=== PATIENT | female | born 1975 | race African-American/Black ===

== ENCOUNTER 2017-01-29 00:30 | Emergency (ER) | payer SELFPAY ==
[~2017-01-29] VITALS: Ht 162.6 cm; Wt 97.5 kg
[~2017-01-29 00:30] MED LIST: AMOXICILLIN500 MG ORAL; BACTRIM DS TAB1 EAC1 ORAL; IBUPROFEN600 MG ORAL; KEFLEX500 MG ORAL
[2017-01-29] MEDS ORDERED: NKM (00:38)
[2017-01-29 01:28] VITALS: BP 134/82
[2017-01-29 01:48] VITALS: BP 134/82
--- NOTE | 2017-01-29 02:00 | Emergency Room Report ---
History of Present Illness General Chief Complaint: Edema Source: Patient Present Illness HPI 41YOF with 2-3 days bilateral foot pain/swelling. Walks a lot. Denies fever/ chills, redness, warmth to feet. Denies insect bite, puncture would. No history of HTN, CHF. *HPI limited by patient more interested in sleeping, asking for a sandwich than discussing her medical problem/visit. Allergies: Coded Allergies: NO KNOWN ALLERGIES (Unverified Allergy, Unknown, 01/29/17) Patient History Past Medical History: none Past Surgical History: none Pertinent Family History: none Last Menstrual Period: now Now: No Immunizations: UTD Reviewed Nursing Documentation: PMH: Agreed, PSxH: Agreed Nursing Documentation-PMH Past Medical History: No Stated History Review of Systems All Other Systems: negative except mentioned in HPI Physical Exam Vital Signs Date Time Temp Pulse Resp B/P Pulse Ox O2 Delivery O2 Flow Rate FiO2 01/29/17 00:33 97.7 83 16 143/87 98 Room Air Sp02 EP Interpretation: reviewed, normal General Appearance: normal inspection, well appearing, no apparent distress, alert Head: normocephalic, atraumatic ENT: normal ENT inspection Neck: normal inspection, full range of motion, supple, no bony tend Respiratory: normal inspection, lungs clear, normal breath sounds, no respiratory distress, no retraction, no wheezing Cardiovascular #1: regular rate, rhythm, no edema Gastrointestinal: normal inspection, normal bowel sounds, non tender, soft, no guarding, no hernia Genitourinary: no CVA tenderness Musculoskeletal: normal inspection, back normal, normal range of motion, Wendy' s Sign negative, other - +1 non-pitting edema bilateral feet. No cellulitis. No rash. No puncture wounds Neurologic: normal inspection, alert, oriented x3, responsive, sales advisory manager III-XII nml as tested, motor strength/tone normal, speech normal Psychiatric: normal inspection, judgement/insight normal, mood/affect normal Skin: normal inspection, normal color, no rash Medical Decision Making Diagnostic Impression: Primary Impression: Edema Qualified Codes: R60.0 - Localized edema ER Course Not particularly pitting. No history of CKD or CHF Doubt fluid overload VSS. Afebrile No cellulitis Analgesia provided DANIEL bandages applied DC home Last Vital Signs Date Time Temp Pulse Resp B/P Pulse Ox O2 Delivery O2 Flow Rate FiO2 01/29/17 01:48 97.7 86 18 134/82 98 Room Air Status: improved Disposition: HOME, SELF-CARE Condition: Improved Referrals: NOT CHOSEN IPA/MD,REFERRING (PCP) Patient Instructions: Edema Additional Instructions: - Keep daniel bandages on feet/ankles to reduce swelling - Sleep with feet elevated KADEEM NATION M.D. Jan 29, 2017 02:00
== END 2017-01-29 01:50 | disposition home or self-care (01) ==
LOC: EMR 01:36
DX: R60.0 Localized edema (principal); M79.672 Pain in left foot; M79.671 Pain in right foot
CPT/HCPCS: 29540; 99283

== ENCOUNTER 2018-01-29 13:43 | Emergency (ER) | payer MEDICAID ==
[~2018-01-29] VITALS: Ht 157.5 cm; Wt 72.6 kg
[~2018-01-29 13:43] MED LIST changes: +NKM
[2018-01-29 14:24] VITALS: BP 151/98
[2018-01-29] MEDS ORDERED: Dicyclomine HCl 10mg/5ml oral soln ORAL ONE (15:15)
--- NOTE | 2018-01-29 15:31 | Emergency Room Report ---
History of Present Illness General Chief Complaint: Flu Like Symptoms Source: Patient Present Illness HPI 42 YO Female presents to the ED c/o cough, Rhinorrhea, body aches, severe nasal congestion x 3 days. pt. reports loose stool that is greenish in color x 2 days. estimates 3 BM's per day. denies recent travel, ill contacts or antibiotic use. pt. denies abdominal pain or tenderness. Pt. reports abdominal cramping just prior to BM's that are resolved after BM. Pt. reports nausea and denies vomiting. denies bloody or dark black stools. pt. denies fevers. She reports some chills Denies CP, Palpitations, LOC, AMS, dizziness, Changes in Vision, Sensation, paresthesias, Rash or a sudden severe headache. She denies hx of Asthma or COPD, she reports that she is a current smoker. Denies dysuria, hematuria, urinary frequency or urgency. denies . Allergies: Coded Allergies: NO KNOWN ALLERGIES (Unverified Allergy, Unknown, 01/29/17) Patient History Past Medical History: see triage record Past Surgical History: none Pertinent Family History: none Last Menstrual Period: 12/15/17 Now: No : 4 Para: 4 Reviewed Nursing Documentation: PMH: Agreed; PSxH: Agreed Nursing Documentation-PMH Past Medical History: No Stated History Review of Systems All Other Systems: negative except mentioned in HPI Physical Exam Vital Signs Date Time Temp Pulse Resp B/P (MAP) Pulse Ox O2 Delivery O2 Flow Rate FiO2 01/29/18 13:58 98.8 76 22 151/98 96 Room Air 98.8 Sp02 EP Interpretation: reviewed, normal General Appearance: no apparent distress - pt. appears tired, sleeps , alert, GCS 15, non-toxic Head: normocephalic, atraumatic Eyes: bilateral eye normal inspection, bilateral eye PERRL ENT: hearing grossly normal, normal voice, uvula midline, moist mucus membranes , nasal congestion - clear rhinorrhea Neck: full range of motion, no meningismus, no bony tend Respiratory: chest non-tender, lungs clear, normal breath sounds, no rhonchi, no wheezing, speaking full sentences Cardiovascular #1: regular rate, rhythm Gastrointestinal: normal bowel sounds, non tender, soft, non-distended, no guarding, no rebound Rectal: deferred Genitourinary: normal inspection, no CVA tenderness Musculoskeletal: back normal, gait/station normal, normal range of motion, non- tender Neurologic: alert, oriented x3, responsive, motor strength/tone normal, sensory intact, normal gait, speech normal, grossly normal Psychiatric: judgement/insight normal Skin: normal color, no rash, warm/dry, well hydrated Lymphatic: no adenopathy Medical Decision Making PA Attestation Dr. Higginbotham is my supervising Physician whom patient management has been discussed with. Diagnostic Impression: Primary Impression: Bronchitis Additional Impressions: Upper respiratory infection Qualified Codes: J06.9 - Acute upper respiratory infection, unspecified Diarrhea Qualified Codes: R19.7 - Diarrhea, unspecified ER Course 42 YO Female presents to the ED c/o cough, Rhinorrhea, body aches, severe nasal congestion x 3 days. pt. reports loose stool that is greenish in color x 2 days. estimates 3 BM's per day. denies recent travel, ill contacts or antibiotic use. pt. denies abdominal pain or tenderness. Pt. reports abdominal cramping just prior to BM's that are resolved after BM. Pt. reports nausea and denies vomiting. denies bloody or dark black stools. pt. denies fevers. She reports some chills Denies CP, Palpitations, LOC, AMS, dizziness, Changes in Vision, Sensation, paresthesias, Rash or a sudden severe headache. She denies hx of Asthma or COPD, she reports that she is a current smoker.. Ddx considered but are not limited to URI, pneumonia, PE, strep pharyngitis, meningitis. Vital signs: Pt. is afebrile, the remaining VS are WNL H&PE are most consistent with URI- no meningeal signs, oropharynx is not involved, no evidence of bacterial infection at this time. - No evidence to suggest acute abdomen on physical exam. She is nontoxic in appearance and in no acute distress during ED visit. Patient was resting comfortably, taking a nap on gurney prior to evaluation. NO evidence to suggest moderate-significant dehydration. ORDERS: none required at this time, the diagnosis is clinical ED INTERVENTIONS: None required at this time. -I do not identify an emergent condition at this time given this patient's physical exam and ER course. Patient is able to tolerate oral fluids, discussed the patient that she will be treated conservatively for her symptoms and that she is stable for close outpatient follow-up. I Gave this patient strict ED return precautions for worsening or new symptoms. DISCHARGE: At this time pt. is stable for d/c to home. Will provide printed patient care instructions, and any necessary prescriptions. Care plan and follow up instructions have been discussed with the patient prior to discharge. Last Vital Signs Date Time Temp Pulse Resp B/P (MAP) Pulse Ox O2 Delivery O2 Flow Rate FiO2 01/29/18 14:24 76 22 Room Air 01/29/18 14:24 98.8 151/98 96 98.8 Disposition: HOME, SELF-CARE Condition: Stable Scripts Loratadine/Pseudoephedrine (CLARITIN-D 12 HOUR TABLET) 1 Each Tab.er.12h 1 TAB ORAL EVERY 12 HOURS, #20 TAB Prov: Nessa Abernathy 01/29/18 Dicyclomine Hcl* (DICYCLOMINE HCL*) 10 Mg Capsule 10 MG PO QID, #15 CAP Prov: Nessa Abernathy 01/29/18 Codeine/Promethazine Hcl* (PROMETHAZINE-CODEINE SYRUP*) 118 Ml Syrup 5 ML ORAL Q6H PRN for For Cough, #120 ML 0 Refills Prov: Nessa Abernathy 01/29/18 Referrals: NOT CHOSEN IPA/MD,REFERRING (PCP) Patient Instructions: Diarrhea, Adult, [id number], Upper Respiratory Infection, Adult, [id number] Additional Instructions: Take medications as directed. Follow up with a Primary Care Provider in 3-5 days, even if your symptoms have resolved. --Please review list of primary care clinics, if you do not already have a primary care provider Return sooner to ED if new symptoms occur, or current symptoms become worse. Do not drink alcohol, drive, or operate heavy machinery while taking [ ] as this may cause drowsiness. - Please note that this Emergency Department Report was dictated using happnprint shop assistant technology software, occasionally this can lead to erroneous entry secondary to interpretation by the dictation equipment. Nessa Abernathy Jan 29, 2018 15:31
[2018-01-29] MEDS ORDERED: PROMETHAZINE-C118 M1 ORAL (15:32)
[2018-01-29] MEDS ORDERED: DICYCLOMINE HCL10 MG PO (15:32)
[2018-01-29] MEDS ORDERED: CLARITIN-D 121 EAC1 ORAL (15:32)
[2018-01-29 16:19] VITALS: BP 146/93
== END 2018-01-29 16:21 | disposition home or self-care (01) ==
LOC: EMR 14:21
DX: J20.9 Acute bronchitis, unspecified (principal); J06.9 Acute upper respiratory infection, unspecified; R19.7 Diarrhea, unspecified
CPT/HCPCS: 99284

== ENCOUNTER 2018-07-06 03:00 | Emergency (ER) | payer MEDICAID ==
[~2018-07-06] VITALS: Ht 157.5 cm; Wt 68.0 kg
[~2018-07-06 03:00] MED LIST changes: +CLARITIN-D 121 EAC1 ORAL; +DICYCLOMINE HCL10 MG PO; +HEPARIN SO5000 UNIT2 SUBQ; +NORCO 10-325 T1 EACH ORAL; +PROMETHAZINE-C118 M1 ORAL
[2018-07-06] MEDS ORDERED: IBUPROFEN600 MG ORAL (03:21)
[2018-07-06] MEDS ORDERED: PREDNISONE20 MG ORAL (03:21)
[2018-07-06] MEDS ORDERED: HYDROCODON-ACE1 EA15 ORAL (03:21)
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
[2018-07-06] MEDS ORDERED: HYDROmorphone 1mg/ml Carpuject IM ONE (03:30)
[2018-07-06 04:10] VITALS: BP 159/98
[2018-07-06 04:20] VITALS: BP 183/106
== END 2018-07-06 04:21 | disposition home or self-care (01) ==
LOC: EMR 03:20
DX: M54.41 Lumbago with sciatica, right side (principal); I10 Essential (primary) hypertension; F17.200 Nicotine dependence, unspecified, uncomplicated; M51.37 Other intervertebral disc degeneration, lumbosacral region; Z87.828 Personal history of other (healed) physical injury and trauma
CPT/HCPCS: 96372; 99283; J1170

== ENCOUNTER 2019-01-15 23:37 | Emergency (ER) | payer MEDICAID ==
[~2019-01-15] VITALS: Ht 162.6 cm; Wt 72.6 kg
[~2019-01-15 23:37] MED LIST changes: +HYDROCODON-ACE1 EA15 ORAL; +PREDNISONE20 MG ORAL
[2019-01-16] MEDS ORDERED: Ketorolac 60mg Inj IM ONE
[2019-01-16] MEDS ORDERED: HYDROcodone/Acetamin 10/325 tab ORAL ONE
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
[2019-01-16] MEDS ORDERED: MEDROL DOSEPAK4 MG ORAL (02:22)
[2019-01-16 03:13] VITALS: BP 124/80
--- NOTE | 2019-01-16 03:16 | NUR ---
ER DISCHARGE NOTE: Patient is cleared to be discharged per ERMD, pt is aox4, on room air, with stable vital signs. pt was given dc and prescription instructions, pt was able to verbalize understanding, pt id band removed. pt is able to ambulate with steady gait with assistance. pt took all belongings.
== END 2019-01-16 03:15 | disposition home or self-care (01) ==
LOC: EMR 23:59
DX: M54.5 Low back pain (principal)
CPT/HCPCS: 96372; 99283

== ENCOUNTER 2019-05-27 02:05 | Emergency (ER) | payer MEDICAID ==
[~2019-05-27] VITALS: Ht 157.5 cm; Wt 68.0 kg
[~2019-05-27 02:05] MED LIST changes: +MEDROL DOSEPAK4 MG ORAL
--- NOTE | 2019-05-27 02:35 | NUR ---
ED Nurse Note: RECIEVED PT FROM HOME, C/O SCABBED LIKE LESIONS TO RIGHT HAND FOR MONTHS, PAIN AT 7/10, WOUNDS HAVE BLACK SCABS AND PT PICKINGT AT THEM WHILE BEING TRIAGED, PT FALLING ASLEEP, HAS STRONG ALCOHOL ODOR NOTED, PT DENEIS ANY OTHER COMPLAINTS OR DISCOMFORTS.
[2019-05-27] MEDS ORDERED: MEDROL DOSEPAK4 MG ORAL (02:58)
[2019-05-27] MEDS ORDERED: CEPHALEXIN500 MG ORAL (02:58)
[2019-05-27] MEDS ORDERED: BENADRYL25 MG ORAL (02:58)
--- NOTE | 2019-05-27 03:10 | NUR ---
ER DISCHARGE NOTE: Patient is cleared to be discharged per ERMD, pt is aox4, on room air, with stable vital signs. pt was given dc and prescription instructions, pt was able to verbalize understanding, pt id band removed without complications. pt is able to ambulate with steady gait. pt took all belongings.
[2019-05-27 03:20] VITALS: BP 139/78
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
== END 2019-05-27 03:10 | disposition home or self-care (01) ==
LOC: EMR 02:47
DX: S60.561A Insect bite (nonvenomous) of right hand, initial encounter (principal); L03.113 Cellulitis of right upper limb; W57.XXXA Bitten or stung by nonvenomous insect and other nonvenomous arthropods, initial encounter; Y92.9 Unspecified place or not applicable
CPT/HCPCS: 99282

== ENCOUNTER 2019-06-08 19:29 | Emergency (ER) | payer MEDICAID ==
[~2019-06-08] VITALS: Ht 157.5 cm; Wt 68.0 kg
[~2019-06-08 19:29] MED LIST changes: +BENADRYL25 MG ORAL; +CEPHALEXIN500 MG ORAL
[2019-06-08 19:45] VITALS: BP 155/98
--- NOTE | 2019-06-08 19:45 | NUR ---
ED Nurse Note: Patient seen approx 5 days ago states she has not felt better. Presents with 3 small lesions to the right hand and states she has had some green discharge from them.
--- NOTE | 2019-06-08 20:43 | Emergency Room Report ---
History of Present Illness General Chief Complaint: Upper Extremity Injury Present Illness HPI 44 YO Female presents to the ED c/o 03/26 in severity pain, Itching, swelling, and erythema of multiple insect bites to the upper extremities. Patient reports 3 bites on her right hand in addition to one on her chin. Patient states that she was evaluated a week ago for lesions of the right hand she states that her symptoms have improved but have not resolved completely. Patient reports she still has itching and some tenderness. Patient reports new lesion to the chin with erythema, tenderness and swelling.She reports that she was prescribed antibiotics for which she finished. Patient denies trauma or fall. Pt. denies fevers, chills or swollen tender lymph nodes. Denies lesions/ rashes elsewhere on the body. Denies new medications or body washes or creams. Denies swelling of the lips, tongue , throat or airway. Denies wheezing, or shortness of breath. Denies recent travel, recent illness or ill contacts. denies blisters, oral lesions, or sloughing of the skin. Allergies: Coded Allergies: NO KNOWN ALLERGIES (Unverified Allergy, Unknown, 05/27/19) Patient History Past Medical History: see triage record Past Surgical History: none Pertinent Family History: none Last Menstrual Period: 06/07/19 Now: No Immunizations: UTD Reviewed Nursing Documentation: PMH: Agreed; PSxH: Agreed Nursing Documentation-PMH Hx Cardiac Problems: No Hx Cancer: No Hx Head Trauma: Yes - 1989 as per pt Hx Headaches: Yes Review of Systems All Other Systems: negative except mentioned in HPI Physical Exam Vital Signs Date Time Temp Pulse Resp B/P (MAP) Pulse Ox O2 Delivery O2 Flow Rate FiO2 06/08/19 19:42 98.2 78 16 155/98 (117) 95 Room Air Sp02 EP Interpretation: reviewed, normal General Appearance: no apparent distress, alert, GCS 15, non-toxic Head: normocephalic, atraumatic Eyes: bilateral eye normal inspection, bilateral eye PERRL ENT: hearing grossly normal, no angioedema, normal voice Neck: full range of motion Respiratory: lungs clear, normal breath sounds, no wheezing, speaking full sentences Cardiovascular #1: regular rate, rhythm, normal capillary refill Musculoskeletal: back normal, gait/station normal, normal range of motion, non- tender Neurologic: alert, oriented x3, responsive, motor strength/tone normal, sensory intact, speech normal, grossly normal Psychiatric: judgement/insight normal Skin: other - No palpable fluctuance on any of the lesions. There are 3 on the dorsum of the right hand 1 proximal to the base of the thumb, one that is proximal to the base of the index finger, and 1 on the lateral aspect of the right hand. There is 1 erythematous papule on the left side of her chin. No blisters or vesicles. No obvious purulent drainage, most of the lesions are scabbed and have evidence of excoriation. Lymphatic: no adenopathy Medical Decision Making PA Attestation Dr. Schmidt is my supervising Physician whom patient management has been discussed with. Diagnostic Impression: Primary Impression: Infected insect bites of multiple sites ER Course 44 YO Female presents to the ED c/o 03/26 in severity pain, Itching, swelling, and erythema of multiple insect bites to the upper extremities. Patient reports 3 bites on her right hand in addition to one on her chin. Patient states that she was evaluated a week ago for lesions of the right hand she states that her symptoms have improved but have not resolved completely. Patient reports she still has itching and some tenderness. Patient reports new lesion to the chin with erythema, tenderness and swelling.She reports that she was prescribed antibiotics for which she finished. Patient denies trauma or fall. Pt. denies fevers, chills or swollen tender lymph nodes. Denies lesions/ rashes elsewhere on the body. Denies new medications or body washes or creams. Denies swelling of the lips, tongue , throat or airway. Denies wheezing, or shortness of breath. Denies recent travel, recent illness or ill contacts. denies blisters, oral lesions, or sloughing of the skin. Ddx considered but are not limited to cellulitis, scabies, insect bites, tic bites, spider bites, contact dermatitis, Drug reaction, allergic reaction, fungal infection, lice. Vital signs: are WNL, pt. is afebrile H&PE are most consistent with Insect bites of multiple sites and mild infection. No palpable fluctuance on any of the lesions. There are 3 on the dorsum of the right hand 1 proximal to the base of the thumb, one that is proximal to the base of the index finger, and 1 on the lateral aspect of the right hand. There is 1 erythematous papule on the left side of her chin. No blisters or vesicles. No obvious purulent drainage, most of the lesions are scabbed and have evidence of excoriation. ORDERS: none required at this time, the diagnosis is clinical ED INTERVENTIONS: -Tylenol PO d/w pt. will change abx, and to continue oral abx along with hot compresses. Encouraged pt. to identify source of insects and to avoid. DISCHARGE: At this time pt. is stable for d/c to home. Will provide printed patient care instructions, and any necessary prescriptions. Care plan and follow up instructions have been discussed with the patient prior to discharge. Last Vital Signs Date Time Temp Pulse Resp B/P (MAP) Pulse Ox O2 Delivery O2 Flow Rate FiO2 06/08/19 19:45 98.2 16 155/98 95 Room Air 06/08/19 19:42 78 Disposition: HOME, SELF-CARE Condition: Stable Scripts Mupirocin* (MUPIROCIN*) 22 Gm Oint...g. 1 APPLIC TOPIC THREE TIMES A DAY, #22 GM Prov: Nessa Abernathy 06/08/19 Ibuprofen* (MOTRIN*) 600 Mg Tablet 600 MG ORAL THREE TIMES A DAY, #30 TAB 0 Refills Prov: Nessa Abernathy 06/08/19 Clindamycin Hcl (CLINDAMYCIN HCL) 300 Mg Capsule 300 MG ORAL FOUR TIMES A DAY for 7 Days, #28 CAP Prov: Nessa Abernathy 06/08/19 Patient Instructions: Abscess, [id number], Insect Bite, [id number] Additional Instructions: Take medications as directed. Follow up with a Primary Care Provider in 3-5 days, even if your symptoms have resolved. --Please review list of primary care clinics, if you do not already have a primary care provider-- YOU are provided with two specific free clinics for your follow up. Return sooner to ED if new symptoms occur, or current symptoms become worse. - Please note that this Emergency Department Report was dictated using [employer]submarine operator technology software, occasionally this can lead to erroneous entry secondary to interpretation by the dictation equipment. Nessa Abernathy Jun 08, 2019 20:43
--- NOTE | 2019-06-08 20:46 | NUR ---
ED Nurse Note: [place] and ice chips provided.
[2019-06-08] MEDS ORDERED: IBUPROFEN600 MG ORAL (20:59)
[2019-06-08] MEDS ORDERED: MUPIROCIN22 GM TOPIC (20:59)
[2019-06-08] MEDS ORDERED: CLINDAMYCIN HC300 MG ORAL (20:59)
[2019-06-08] MEDS ORDERED: Tylenol #3 tab (300mg/30mg) ORAL ONE (21:00)
--- NOTE | 2019-06-08 21:03 | NUR ---
ER DISCHARGE NOTE: Patient is cleared to be discharged per ERMD, pt is aox4, on room air, with stable vital signs. pt was given dc and prescription instructions, pt was able to verbalize understanding, pt id band removed. pt is able to ambulate with steady gait. pt took all belongings.
[2019-06-08 21:05] VITALS: BP 155/98
== END 2019-06-08 21:03 | disposition home or self-care (01) ==
LOC: EMR 20:00
DX: S60.561A Insect bite (nonvenomous) of right hand, initial encounter (principal); S00.86XA Insect bite (nonvenomous) of other part of head, initial encounter; L08.9 Local infection of the skin and subcutaneous tissue, unspecified; W57.XXXA Bitten or stung by nonvenomous insect and other nonvenomous arthropods, initial encounter; Y92.9 Unspecified place or not applicable
CPT/HCPCS: 99282

== ENCOUNTER 2019-09-04 02:24 | Emergency (ER) | payer SELFPAY ==
[~2019-09-04] VITALS: Ht 157.5 cm; Wt 70.3 kg
[~2019-09-04 02:24] MED LIST changes: +CLINDAMYCIN HC300 MG ORAL; +MUPIROCIN22 GM TOPIC
--- NOTE | 2019-09-04 02:33 | NUR ---
not in waiting room
[2019-09-04 02:50] VITALS: BP 149/76
--- NOTE | 2019-09-04 02:50 | NUR ---
ER Nurse Note: Pt walked in c/o LT wrist pain since 2299. Pt stated she slipped and fell; landed on her wrist. Pt stated 10/10 pain; unable to move wrist.
--- NOTE | 2019-09-04 02:55 | Emergency Room Report ---
History of Present Illness General Chief Complaint: Upper Extremity Injury Source: Patient Present Illness HPI 44-year-old female who is right-hand dominant. She presents with complaint of left wrist pain. She is washing her feet in the kitchen sink and slipped and fell. She caught herself with her left arm. She complained of left wrist pain. Onset 3 hours ago. Pain is 9 out of 10. Worse with movement. Better with rest. No swelling. No other injury. Allergies: Coded Allergies: NO KNOWN ALLERGIES (Unverified Allergy, Unknown, 05/27/19) Patient History Past Medical History: see triage record, old chart reviewed Past Surgical History: other Pertinent Family History: none Social History: Reports: smoking Last Menstrual Period: current Now: No Immunizations: other Reviewed Nursing Documentation: PMH: Agreed; PSxH: Agreed Nursing Documentation-PMH Hx Cardiac Problems: No Hx Cancer: No Hx Head Trauma: Yes - 1989 as per pt Hx Headaches: Yes Review of Systems Eye: Denies: eye pain, blurred vision ENT: Denies: ear pain, nose congestion, throat swelling Respiratory: Denies: cough, shortness of breath Cardiovascular: Denies: chest pain, palpitations Gastrointestinal: Denies: abdominal pain, diarrhea, nausea, vomiting Musculoskeletal: Reports: joint pain; Denies: back pain Skin: Denies: rash Neurological: Denies: headache, numbness Endocrine: Denies: increased thirst, increased urine Hematologic/Lymphatic: Denies: easy bruising All Other Systems: negative except mentioned in HPI Physical Exam Vital Signs Date Time Temp Pulse Resp B/P (MAP) Pulse Ox O2 Delivery O2 Flow Rate FiO2 09/04/19 02:41 97.5 90 18 149/76 (100) 97 Room Air Vitals normal Sp02 EP Interpretation: reviewed, normal General Appearance: well appearing, no apparent distress, alert Head: normocephalic, atraumatic Eyes: bilateral eye PERRL, bilateral eye EOMI ENT: hearing grossly normal, normal pharynx Neck: full range of motion, supple, no meningismus Respiratory: chest non-tender, lungs clear, normal breath sounds Cardiovascular #1: regular rate, rhythm, no murmur Gastrointestinal: normal bowel sounds, non tender, no mass, no organomegaly, no bruit, non-distended Musculoskeletal: back normal, normal range of motion, gait/station normal, tender - Tenderness over the distal radius of left wrist. Psychiatric: mood/affect normal Procedures Splinting Splinting : Consent: Verbal Location: left wrist Pre-Made Type: velcro Splint: volar Patient Tolerated: Well Complications: None Medical Decision Making Diagnostic Impression: Primary Impression: Left wrist sprain Qualified Codes: S63.502A - Unspecified sprain of left wrist, initial encounter ER Course Patient presents with left wrist injury. No fracture dislocation. Patient has 2 rings on her third fourth finger. I was able remove the one on the third finger. He got the other 1. I see no deformity. X-rays negative. Discharge home. Other X-Ray Diagnostic Results Other X-Ray Diagnostic Results : X-Ray ordered: Left wrist x-rays # of Views/Limited Vs Complete: 3 View Indication: Pain EP Interpretation: Yes Interpretation: no dislocation, no soft tissue swelling, no fractures Impression: No acute disease Electronically Signed by: Edilberto Zurita MD Last Vital Signs Date Time Temp Pulse Resp B/P (MAP) Pulse Ox O2 Delivery O2 Flow Rate FiO2 09/04/19 02:41 97.5 90 18 149/76 (100) 97 Room Air Status: improved Disposition: HOME, SELF-CARE Condition: Stable Scripts Ibuprofen* (MOTRIN*) 600 Mg Tablet 600 MG ORAL THREE TIMES A DAY, #30 TAB 0 Refills Prov: Edilberto Zurita MD 09/04/19 Hydrocodone/Acetaminophen 5-325* (HYDROCODONE/ACETAMINOPHEN 5-325*) 1 Each Tablet 1 TAB ORAL Q6H PRN for For Pain, #20 TAB 0 Refills Prov: Edilberto Zurita MD 09/04/19 Additional Instructions: Elevate wrist. Ice pack to the area. Follow-up with your doctor in 7 days. Return if worse. Edilberto Zurita MD Sep 04, 2019 02:55
[2019-09-04] MEDS ORDERED: HYDROmorphone 1mg/ml Carpuject ONE (02:56)
[2019-09-04] MEDS ORDERED: HYDROmorphone 1mg/ml Carpuject IM ONE (03:00)
[2019-09-04] MEDS ORDERED: IBUPROFEN600 MG ORAL (03:16)
[2019-09-04] MEDS ORDERED: HYDROCODON-ACE1 EA15 ORAL (03:16)
[2019-09-04 03:20] VITALS: BP 140/76
--- NOTE | 2019-09-04 03:20 | NUR ---
ER Nurse Note: Patient is cleared to be discharged per ERMD, pt is aox4, on room air, with stable vital signs. pt was given dc and prescription instructions, pt was able to verbalize understanding, pt id band removed. Splint applied; no signs of loss of ciruclation. pt is able to ambulate with steady gait. pt took all belongings.
--- NOTE | 2019-09-04 03:43 | Diagnostic Imaging Report ---
EXAM: XR Left Wrist Complete, 3 or More Views CLINICAL HISTORY: TRAUMA TECHNIQUE: Frontal, lateral and oblique views of the left wrist. COMPARISON: No relevant prior studies available. FINDINGS: Bones/joints: No acute fracture. No dislocation. Soft tissues: Unremarkable. No radiopaque foreign body. IMPRESSION: No acute osseous abnormalities.
== END 2019-09-04 07:00 | disposition home or self-care (01) ==
LOC: EMR 06:17
DX: S63.502A Unspecified sprain of left wrist, initial encounter (principal); W01.0XXA Fall on same level from slipping, tripping and stumbling without subsequent striking against object, initial encounter; Y92.9 Unspecified place or not applicable; F17.200 Nicotine dependence, unspecified, uncomplicated
CPT/HCPCS: 29125; 73110; 96372; 99283; J1170

== ENCOUNTER 2020-06-14 03:42 | Emergency (ER) | payer MEDICAID ==
[~2020-06-14] VITALS: Ht 157.5 cm; Wt 81.6 kg
[2020-06-14 04:20] LABS: BILIRUBIN, URINE NEGATIVE (NEGATIVE); COLOR,URINE RED; GLUCOSE, URINE (UA) NEGATIVE (NEGATIVE); KETONES,URINE NEGATIVE (NEGATIVE); LEUKOCYTE ESTERASE ,URINE 1+ (NEGATIVE); NITRITE,URINE NEGATIVE (NEGATIVE); PH,URINE 6.5 (4.5-8.0); PROTEIN,URINE 4+ (NEGATIVE); UROBILINOGEN,URINE NORMAL MG/DL (0.0-1.0)
[2020-06-14 04:21] LABS: EOSINOPHILS % (AUTO) 3.3 % (0.0-3.0); MEAN CORPUSCULAR VOLUME 77 FL (80-99); MONOCYTES % (AUTO) 8.9 % (1.0-10.0); NEUTROPHILS % (AUTO) 73.9 % (45.0-75.0); PLATELET COUNT 369 K/UL (150-450); RED BLOOD COUNT 4.13 M/UL (4.20-5.40); RED CELL DISTRIBUTION WIDTH 21.7 % (11.6-14.8); WHITE BLOOD COUNT 10.1 K/UL (4.8-10.8)
[2020-06-14 04:31] LABS: APPEARANCE,URINE CLOUDY
[2020-06-14 04:36] LABS: CALCIUM 8.8 MG/DL (8.5-10.1); CREATININE 1.2 MG/DL (0.55-1.30); POTASSIUM 3.9 MMOL/L (3.5-5.1)
--- NOTE | 2020-06-14 04:45 | Emergency Room Report ---
History of Present Illness General Chief Complaint: Female Urogenital Problems Source: Patient Present Illness [facility] Disclaimer: Please note that this report is being documented using [employer] technology. This can lead to erroneous entry secondary to incorrect interpretation by the dictating instrument. HPI: 45-year-old female presents for evaluation of vaginal bleeding. She states she has noticed passing clots while urinating over the past 2 days. Reports irregular periods over the past 2 months. Denies pelvic pain abdominal pain, na usea, vomiting, diarrhea, fever, chills. No prior history abdominal surgery. Denies painful sexual intercourse. Denies vaginal discharge. Denies dysuria but reports hematuria. Denies flank pain. Denies lightheadedness, palpitations, chest pain or shortness of breath. PMH: Denied PSH: Denied Allergies: Denied Social Hx: Regular tobacco use, regular alcohol use, regular cocaine use Allergies: Coded Allergies: NO KNOWN ALLERGIES (Unverified Allergy, Unknown, 05/27/19) COVID-19 Screening Contact w/high risk pt: No Experienced COVID-19 symptoms?: No COVID-19 Testing performed FURNACE KEEPER: No Patient History Last Menstrual Period: unk Now: No : 5 Para: 4 Nursing Documentation-PMH Past Medical History: No Stated History Hx Cardiac Problems: No Hx Cancer: No Hx Head Trauma: Yes - 1989 as per pt Hx Headaches: Yes Review of Systems All Other Systems: negative except mentioned in HPI Physical Exam Vital Signs Date Time Temp Pulse Resp B/P (MAP) Pulse Ox O2 Delivery O2 Flow Rate FiO2 06/14/20 03:45 98.2 89 18 179/96 (123) 99 Room Air General: Awake and alert, no acute distress HEENT: NC/AT. EOMI. Cardiovascular: RRR. S1 and S2 normal. No murmur appreciated Resp: Normal work of breathing. No cough, wheezing or crackles appreciated Abdomen: Abdomen is soft, nondistended. Nontender. No palpable masses Skin: Intact. No abrasions, laceration or rash over the exposed skin MSK: Normal tone and bulk. Moving all extremities. No obvious deformity. Neuro: Awake and alert. Mentating appropriately. Medical Decision Making Diagnostic Impression: Primary Impression: Uterine fibroid Additional Impressions: Ovarian cyst Vaginal bleeding ER Course 45-year-old female presents for evaluation of vaginal bleeding and passing blood clots over the past 2 days as well as irregular periods over the past 2 months. Differential includes but not limited to uterine polyps, adenomyoma, leiomyoma, ectopic , malignancy, coagulopathy, ovarian dysfunction, endocrine dysfunction, urinary tract infection, pyelonephritis, abnormal uterine bleeding, perimenopausal bleeding, polymenorrhagia to name a few. A pelvic ultrasound was ordered and preliminary interpretation showing uterine fibroid and small ovarian cyst. The patient is denying pain or discomfort at this time. Labs show microcytic anemia with a hemoglobin 10.0. This is unchanged from previous visit. She does not require emergent transfusion at this time. Coagulation studies within normal limits, normal renal function and white count. No evidence of acute infection on urinalysis. Patient will be discharged with [facility] follow-up. Instructed to return with new or worsening symptoms. She understands and agrees with this treatment plan. Laboratory Tests Test 06/14/20 04:00 White Blood Count 10.1 K/UL (4.8-10.8) Red Blood Count 4.13 M/UL (4.20-5.40) L Hemoglobin 10.0 G/DL (12.0-16.0) L Hematocrit 32.0 % (37.0-47.0) L Mean Corpuscular Volume 77 FL (80-99) L Mean Corpuscular Hemoglobin 24.2 PG (27.0-31.0) L Mean Corpuscular Hemoglobin Concent 31.2 G/DL (32.0-36.0) L Red Cell Distribution Width 21.7 % (11.6-14.8) H Platelet Count 369 K/UL (150-450) Mean Platelet Volume 5.7 FL (6.5-10.1) L Neutrophils (%) (Auto) 73.9 % (45.0-75.0) Lymphocytes (%) (Auto) 13.0 % (20.0-45.0) L Monocytes (%) (Auto) 8.9 % (1.0-10.0) Eosinophils (%) (Auto) 3.3 % (0.0-3.0) H Basophils (%) (Auto) 1.0 % (0.0-2.0) Prothrombin Time 10.8 SEC (9.30-11.50) Prothrombin Time INR 1.0 (0.9-1.1) Activated Partial Thromboplast Time 25 SEC (23-33) Urine Color Red Urine Appearance Cloudy Urine pH 6.5 (4.5-8.0) Urine Specific [place] 1.010 (1.005-1.035) Urine Protein 4+ (NEGATIVE) H Urine Glucose (UA) Negative (NEGATIVE) Urine Ketones Negative (NEGATIVE) Urine Blood 5+ (NEGATIVE) H Urine Nitrite Negative (NEGATIVE) Urine Bilirubin Negative (NEGATIVE) Urine Urobilinogen Normal MG/DL (0.0-1.0) Urine Leukocyte Esterase 1+ (NEGATIVE) H Urine RBC Tntc /HPF (0 - 2) H Urine WBC 2-4 /HPF (0 - 2) Urine Squamous Epithelial Cells Few /LPF (NONE/OCC) Urine Bacteria Few /HPF (NONE) Urine HCG, Qualitative Negative (NEGATIVE) Sodium Level 135 MMOL/L (136-145) L Potassium Level 3.9 MMOL/L (3.5-5.1) Chloride Level 102 MMOL/L (98-107) Carbon Dioxide Level 23 MMOL/L (21-32) Anion Gap 10 mmol/L (5-15) Blood Urea Nitrogen 12 mg/dL (7-18) Creatinine 1.2 MG/DL (0.55-1.30) Estimated Glomerular Filtration Rate 58.4 mL/min (>60) Glucose Level 86 MG/DL (74-106) Calcium Level 8.8 MG/DL (8.5-10.1) Last Vital Signs Date Time Temp Pulse Resp B/P (MAP) Pulse Ox O2 Delivery O2 Flow Rate FiO2 06/14/20 03:45 98.2 89 18 179/96 (123) 99 Room Air Disposition: HOME, SELF-CARE Condition: Stable Scripts Iron,Carbonyl/Vit C/Vit B12/Fa (IRON 100 PLUS TABLET) 1 Each Tablet 1 EACH PO DAILY for 60 Days, #60 TAB Prov: Donato Sanderson MD 06/14/20 Patient Instructions: Uterine Fibroids Additional Instructions: Follow-up with [facility] as soon as possible to discuss new findings of ovarian fibroids as well as abnormal uterine bleeding. Please follow-up with your primary care doctor in the next 1 to 3 days to discuss this emergency department visit and for reevaluation. If you have any new or worsening symptoms please return to the emergency department for reevaluation. Please note that this report is being documented using [employer] technology. This can lead to erroneous entry secondary to incorrect interpretation by the dictating instrument. Donato Sanderson MD Jun 14, 2020 04:45
[2020-06-14] MEDS ORDERED: IRON 100 PLUS1 EACH PO (04:46)
[2020-06-14 05:00] VITALS: BP 168/82
--- NOTE | 2020-06-14 07:42 | Diagnostic Imaging Report ---
EXAM: US Pelvis Transabdominal and Transvaginal, Complete CLINICAL HISTORY: PAIN TECHNIQUE: Real-time complete transabdominal and transvaginal pelvic ultrasound with image documentation. Transvaginal imaging was used for better evaluation of the endometrium and adnexa. COMPARISON: No relevant prior studies available. FINDINGS: The uterus measures 9.6 x 4.7 cm. There is a submucosal fibroid measuring 1.6 x 1.1 cm. The endometrial complex measures 7 mm. The right ovary measures 2.3 x 1.4 x 1.2 cm. Normal color flow and Doppler interrogation. The left ovary measures 3.5 x 2.1 x 4.2 cm. Normal color flow and Doppler interrogation. Simple left ovarian cyst measuring 3.4 x 2.6 x 2.0 cm. No free fluid in the pelvis. IMPRESSION: Simple left ovarian cyst measuring 3.4 x 2.6 x 2.0 cm. Follow-up in 1-2 menstrual cycles. Submucosal fibroid measuring 1.6 x 1.1 cm.
== END 2020-06-14 05:00 | disposition home or self-care (01) ==
LOC: EMR 03:50
DX: D25.0 Submucous leiomyoma of uterus (principal); N83.292 Other ovarian cyst, left side; N93.9 Abnormal uterine and vaginal bleeding, unspecified
CPT/HCPCS: 36415; 76830; 76856; 80048; 81003; 81025; 85025; 85610; 85730; Z7502; 99284